=== PATIENT | female | born 1980 | race Caucasian/White ===

== ENCOUNTER 2019-08-09 10:34 | Day surgery (SDC) | payer OTHER, SELFPAY ==
[2019-08-08 14:24] VITALS: BMI 34.9
[2019-08-09 11:09] LABS: OR HCG Qualitative Urine Negative (Negative)
[2019-08-09 11:10] VITALS: BP 136/92; PULSE 95; RESP 18; TEMP 36.9; O2SAT 99
--- NOTE | 2019-08-09 11:54 | ANES.PREANES ---
Pre-Anesthetic Assessment Pre-Anesthetic Assessment: Height/Weight: Height 1.65 m Weight 95.254 kg Temp Pulse Resp BP Pulse Ox 98.4 F 95 18 136/92 99 08/09/19 11:10 08/09/19 11:10 08/09/19 11:10 08/09/19 11:10 08/09/19 11:10 Preop Diagnosis: Right carpal tunnel syndrome Proposed Procedure: Operation Date: 08/09/19 12:20 Proposed Procedures p Carpal Tunnel Release 28968 G56.01(Right) - Felix Deleon MD Social: Social History: No alcohol and No tobacco Exam: Pre-Anes Outpt Exam: alert, oriented x 3, clear to auscultation bilaterally and regular rate & rhythm Airway: Submandibular: WNL Cervical ROM: WNL MP: 2 History/ROS: No significant history except as noted Pulmonary: Pulmonary: None reported CV/HEM: CV/HEM: None reported : : None reported Hepatic: Hepatic: None reported GI: GI: None reported Metabolic: Metabolic: None reported Musc/skel: Musc/skel: None reported Neuropsych: Neuropsych: None reported Anesthetic Plan: ASA status: I Anesthesia: Anesthesia Evaluation and MAC Risk of > 500 ml blood loss (7ml/kg in children): No PFSH Anesthesia PFSH: Medical History (Updated 08/09/19 @ 11:54 by Sergio Wright MD) Carpal tunnel syndrome of right wrist (Acute) Genital herpes (Acute) History of seizure disorder (Acute) Surgical History (Updated 08/09/19 @ 11:54 by Sergio Wright MD) Hx of removal of ovary (Acute) left Social History Smoking and tobacco status: never smoked Second hand smoke exposure: No Smoking risk assessment/counseling performed?: No Alcohol intake: never Counseling given: No Lives independently: Yes Household members: children Marital status: Data Anesthesia Other Labs: Laboratory Results - last 48 hr 08/09/19 10:56 Urine HCG, Qual Negative Cardiac Studies: No Data to Display
[2019-08-09] MEDS: sodium chloride 0.9% 1,000 ML 30 ML IV (12:10)
--- NOTE | 2019-08-09 13:49 | PM.HPUD ---
H&P update H&P Update: DATE OF SURGERY/PROCEDURE: 08/09/19 DATE H&P PERFORMED: 08/01/19 H&P UPDATE INFORMATION: H&P completed within last 30 days and No changes to prior documentation PREOP DIAGNOSIS: Right carpal tunnel syndrome PRIMARY INDICATION FOR PROCEDURE: The patient describes continued pain and numbness in her right hand with nerve conduction studies suggesting carpal tunnel syndrome. PLANNED PROCEDURE: Operation Date: 08/09/19 12:20 Proposed Procedures p Carpal Tunnel Release 12977 G56.01(Right) - Felix Deleon MD Full H&P Medications/Allergies: Current Medications: Current Medications Generic Name Dose Route Start Last Admin Trade Name Freq PRN Reason Stop Dose Admin Sodium Chloride 1,000 mls @ 30 ml s/hr 08/09/19 10:45 08/09/19 12:10 Sodium Chloride 0.9% IV 08/10/19 10:44 30 mls/hr .Q24H LM Administration Perinent History: Medical/Surgical History: Medical History (Updated 08/09/19 @ 11:54 by Sergio Wrihgt MD) Carpal tunnel syndrome of right wrist (Acute) Genital herpes (Acute) History of seizure disorder (Acute) Social History: Social History Smoking and tobacco status: never smoked Second hand smoke exposure: No Smoking risk assessment/counseling performed?: No Alcohol intake: never Counseling given: No Lives independently: Yes Household members: children Marital status:
--- NOTE | 2019-08-09 14:42 | P.OP_ITS ---
Operative Report Date of procedure: 08/09/19 Pre-op Diagnosis: Right carpal tunnel syndrome Post-op diagnosis: same Pathology: none sent Anesthesia: Local (Zia block) Tourniquet time (min): 21 Complications: None Findings: No masses or space-occupying lesions are seen within the carpal tunnel Condition: stable Disposition: same day Procedure: Patient was taken to the operating room and anesthesia provided by the anesthesia service. She was prepped and draped with the arm exposed. A timeout was performed. A 3 cm long incision was made in line with the fourth ray from the distal edge of the carpal tunnel extending proximally. The subcutaneo us fat and palmar fascia was divided with a scalpel blade. Under loupe magnification the ulnar neurovascular bundle was identified distally. A hemostat could be passed under the transverse carpal ligament allowing the distal 25% to be divided. A slotted guide was then passed beneath the transverse carpal ligament and the middle 50% divided. Blunt scissors were then passed over the guide freeing the proximal ligament. The tourniquet was deflated. Hemostasis provided with electrocautery. Wound edges were infiltrated with 10 cc of a half percent Marcaine solution. Skin edges were reapproximated with 3-0 Prolene. Sterile dressings were applied. The patient was taken to the recovery room in stable condition
[2019-08-09 14:54] VITALS: BP 108/68; PULSE 78; RESP 16; TEMP 36.4; O2SAT 100
[2019-08-09 15:20] VITALS: BP 116/81; PULSE 64; RESP 18; TEMP 36.4; O2SAT 98
== END 2019-08-09 15:52 | disposition home or self-care (01) ==
PROVIDERS: Anesthesiology; Family Provider Nurse Practitioner; PCP Nurse Practitioner Family; Visit Provider Orthopaedic Surgery
PROC: (CPT 64721; principal; 2019-08-09 12:10)
DX: G56.01 Carpal tunnel syndrome, right upper limb (principal)
CPT/HCPCS: 64721; 12345; 81025; 84703; 96365; J0690; J2001; J2250; J2704; J3490; J7030

== ENCOUNTER → 2020-02-12 13:04 | Outpatient (BNVA) | payer SELFPAY | PROVIDERS: Family Provider Nurse Practitioner; PCP Nurse Practitioner Family; Visit Provider Nurse Practitioner Family | DX: M25.572 Pain in left ankle and joints of left foot (principal); S99.912A Unspecified injury of left ankle, initial encounter; W19.XXXA Unspecified fall, initial encounter | CPT/HCPCS: 73610 ==

== ENCOUNTER → 2021-08-11 13:43 | Outpatient (BNVA) | payer SELFPAY | PROVIDERS: Family Provider Nurse Practitioner; PCP Nurse Practitioner Family; Visit Provider Nurse Practitioner Family | DX: Z12.4 Encounter for screening for malignant neoplasm of cervix (principal); B37.2 Candidiasis of skin and nail | CPT/HCPCS: 87624 ==

== ENCOUNTER → 2021-08-29 08:41 | Outpatient (BNVA) | payer OTHER, SELFPAY | PROVIDERS: Family Provider Nurse Practitioner; PCP Nurse Practitioner Family; Visit Provider Nurse Practitioner Family | DX: M25.50 Pain in unspecified joint (principal); R53.83 Other fatigue; Z13.6 Encounter for screening for cardiovascular disorders; Z12.4 Encounter for screening for malignant neoplasm of cervix | CPT/HCPCS: 80053; 80061; 84443; 85025; 85651; 86140; 86200; 86431 ==

== ENCOUNTER 2021-09-19 09:01 | Outpatient (CLI) | payer OTHER, SELFPAY ==
--- NOTE | 2021-09-19 09:28 | XR_ITS ---
WS: [email or web address] Sacroiliac joints, 3 views, 09/19/2021 Clinical Data: L40.9 - Psoriasis, unspecified Comparison: None. Findings: The SI joints are normal in width. No erosion, sclerosis or destruction is seen. There are no fractur es or dislocations. The adjacent visualized pelvis and hips are unremarkable. XR/XR sacroiliac jts m 3V [id number] Impression: Negative SI joints.
--- NOTE | 2021-09-19 09:28 | XR_ITS ---
WS: [email or web address] Right hand, 2 views, 09/19/2021 Clinical Data: M54.50 - Low back pain, unspecified Comparison: None. Findings: No fractures or dislocations are seen. The soft tissues are unremarkable. The joint space s are normal No periarticular demineralization or calcifications are seen. XR/XR hand RT 2V [id number] Impression: Negative right hand.
--- NOTE | 2021-09-19 09:28 | XR_ITS ---
WS: [email or web address] Left hand, 2 views, 09/19/2021 Clinical Data: M54.50 - Low back pain, unspecified Comparison: None. Findings: No fractures or dislocations are seen. The soft tissues are unremarkable. The joint spaces are normal No periarticular demineralization or calcifications are seen. XR/XR hand LT 2V [id number] Impression: Negative left hand.
--- NOTE | 2021-09-19 09:28 | XR_ITS ---
WS: [email or web address] Left foot, 2 views, 09/19/2021 Clinical Data: M25.50 - Pain in unspecified joint Comparison: None. Findings: No fractures or dislocations are seen. No bone destruction or erosion is noted. The joint spaces and soft tissues are normal. No periarticular demineralization or calcifications are seen. There is a plantar spur. XR/XR foot LT 2V [id number] Impression: Negative left foot.
--- NOTE | 2021-09-19 09:28 | XR_ITS ---
WS: [email or web address] Lumbar spine, 3 views, 09/19/2021 Clinical Data: M54.50 - Low back pain, unspecified Comparison: Lumbar spine, 04/12/2013. Findings: No compression fractures or subluxation is seen. No disc space narrowing is seen. The transverse proc esses and SI joints are normal. There is minimal osteoarthritic change of the anterior aspect of the L3 and L4 vertebral bodies. XR/XR lumbar spine 2-3V* [id number] Impression: Mild osteoarthritis of L3 and L4.
--- NOTE | 2021-09-19 09:28 | XR_ITS ---
WS: [email or web address] Right foot, 2 views, right foot. Clinical Data: M25.50 - Pain in unspecified joint Comparison: None. Findings: No fractures or dislocations are seen. No bone destruction or erosion is noted. The joint spaces and soft tissues are normal. No periarticular demineralization or calcifications are seen. XR/XR foot RT 2V [id number] Impression: Negative right foot.
[2021-09-19 10:33] LABS: Creatine Phosphokinase 69 U/L (26-192); Thyroid Stimulating Hormone 2.13 uIU/mL (0.27-4.20)
[2021-09-19 10:42] LABS: Hepatitis B Core AB, Total Non-Reactive (Nonreactive); Hepatitis B Surface Antigen Non-Reactive (Nonreactive); Hepatitis C Virus Antibody Non-Reactive (Nonreactive)
[2021-09-22 11:49] LABS: COMPLEMENT COMPONENT C3C 163 mg/dL (83-193); COMPLEMENT COMPONENT C4C 23 mg/dL (15-57)
[2021-09-22 17:22] LABS: COMPLEMENT, TOTAL (CH50) 58 U/mL (31-60)
[2021-09-24 14:52] LABS: THYROID PEROXIDASE ANTIBODIES 1 IU/mL (<9)
[2021-09-24 16:27] LABS: ANA SCREEN, IFA NEGATIVE (NEGATIVE); CENTROMERE B ANTIBODY <1.0 NEG AI (<1.0 NEG); JO-1 ANTIBODY <1.0 NEG AI (<1.0 NEG); RNP ANTIBODY <1.0 NEG AI (<1.0 NEG); SCL-70 ANTIBODY <1.0 NEG AI (<1.0 NEG); SJOGREN'S ANTIBODY (SS-A) <1.0 NEG AI (<1.0 NEG); SM ANTIBODY <1.0 NEG AI (<1.0 NEG); SS-B <1.0 NEG AI (<1.0 NEG)
[2021-09-25 12:22] LABS: DNA AB (DS) CRITHIDIA,IFA NEGATIVE (NEGATIVE)
== END 2021-09-19 09:02 | disposition home or self-care (01) ==
LOC: RAD 09:11
PROVIDERS: PCP Nurse Practitioner Family; Visit Provider Internal Medicine
DX: M54.50 Low back pain, unspecified (principal); E78.5 Hyperlipidemia, unspecified; G56.01 Carpal tunnel syndrome, right upper limb; M25.50 Pain in unspecified joint; R41.3 Other amnesia; L40.9 Psoriasis, unspecified; M47.816 Spondylosis without myelopathy or radiculopathy, lumbar region
CPT/HCPCS: 36415; 72100; 72202; 73120; 73620; 82550; 83516; 84443; 86160; 86162; 86235; 86255; 86376; 86704; 86803; 87340

== ENCOUNTER 2021-12-10 09:13 | Outpatient (RCR) | payer OTHER, SELFPAY | END 2021-12-16 23:59 | disposition home or self-care (01) | LOC: SPT 09:13 | PROVIDERS: PCP Nurse Practitioner Family; Referring Provider Nurse Practitioner; Visit Provider Nurse Practitioner | DX: S93.412D Sprain of calcaneofibular ligament of left ankle, subsequent encounter (principal); X58.XXXD Exposure to other specified factors, subsequent encounter | CPT/HCPCS: 97110; 97162 ==

== ENCOUNTER 2021-12-17 06:00 | Outpatient (RCR) | payer OTHER, SELFPAY | END 2021-12-31 23:59 | disposition home or self-care (01) | LOC: SPT 06:00 | PROVIDERS: PCP Nurse Practitioner Family; Referring Provider Nurse Practitioner; Visit Provider Nurse Practitioner | DX: S93.412D Sprain of calcaneofibular ligament of left ankle, subsequent encounter (principal); X58.XXXD Exposure to other specified factors, subsequent encounter | CPT/HCPCS: 97110 ==

== ENCOUNTER → 2021-12-19 10:59 | Outpatient (BNVA) | payer OTHER, SELFPAY | PROVIDERS: PCP Nurse Practitioner Family; Visit Provider Nurse Practitioner Family | DX: H53.9 Unspecified visual disturbance (principal); E78.5 Hyperlipidemia, unspecified; E88.81 Metabolic syndrome and other insulin resistance | CPT/HCPCS: 80061 ==

== ENCOUNTER → 2022-03-30 13:47 | Outpatient (BNVA) | payer OTHER, SELFPAY | PROVIDERS: PCP Nurse Practitioner Family; Visit Provider Nurse Practitioner Family | DX: R39.9 Unspecified symptoms and signs involving the genitourinary system (principal); B37.3 Candidiasis of vulva and vagina; K21.9 Gastro-esophageal reflux disease without esophagitis; E78.5 Hyperlipidemia, unspecified | CPT/HCPCS: 81000 ==

== ENCOUNTER → 2022-06-19 13:19 | Outpatient (BNVA) | payer OTHER, SELFPAY | PROVIDERS: PCP Nurse Practitioner Family; Visit Provider Nurse Practitioner Family | DX: R05.9 Cough, unspecified (principal) | CPT/HCPCS: 87400 ==

== ENCOUNTER → 2022-10-06 09:36 | Outpatient (BNVA) | payer OTHER, SELFPAY | PROVIDERS: PCP Nurse Practitioner Family; Visit Provider Nurse Practitioner Family | DX: R05.3 Chronic cough (principal) | CPT/HCPCS: 71046 ==

== ENCOUNTER 2023-08-13 18:24 | Emergency (ER) | payer OTHER, SELFPAY ==
[2023-08-13 18:27] VITALS: BP 141/92; PULSE 89; RESP 16; TEMP 36.4; O2SAT 99
[2023-08-13 20:37] VITALS: BP 123/90; PULSE 77; O2SAT 100
[2023-08-13] MEDS: dexamethasone 4 mg Tablet 10 MG PO (20:58)
[2023-08-13 20:59] VITALS: BP 123/90; PULSE 90; O2SAT 99
[2023-08-13] MEDS: diphenhydrAMINE 25 mg Capsule PO (20:59)
--- NOTE | 2023-08-13 22:03 | W.ED.ALLEREA ---
HPI - Allergic Reaction General: Chief complaint: Allergic Reaction Stated complaint: Allergic Reaction Time Seen by Provider: 08/13/23 20:16 History of Present Illness: HPI narrative: 43-year-old female presents with swelling around her bilateral eyes. There is itchiness 2. This started around 3 PM or 330 today. No definite known cause. When her symptoms worsen, particularly the swelling, she took Benadryl. She seemed to begin to improve some following this. She still has significant left lower lid and some right upper lid swelling. The itchiness has improved. There is no redness or drainage she says. No airway symptoms. No trouble breathing. No vomiting or diarrhea. No rash. Of note, she has had similar symptoms on and off for the last 6 months, and has not been able to determine a cause. Tonight was the worst Associated symptoms: Deny abdominal pain, hoarseness, nausea or vomiting Review of Systems Const: Denies: fever(s) Eyes: Reports: blurry vision (With lid swelling) and eye discomfort; Denies: photophobia, eye discharge or eye redness ENMT: Reports: sinus pain; Denies: throat pain, odynophagia, hoarseness, nasal congestion or nasal obstruction Card: Denies: chest pain Resp: Denies: dyspnea, productive cough or non-productive cough GI: Denies: abdominal pain, nausea, vomiting or diarrhea [facility] ED PFSH: Medical History CRP elevated Ankle pain Hyperlipemia Genital herpes Carpal tunnel syndrome of right wrist History of seizure disorder Surgical History Hx of removal of ovary left Family History Other Cancer Diabetes Heart attack Hyperlipidemia Hypertension Stroke Denies family history of Rheumatoid arthritis Lupus CAD (coronary artery disease) Clotting disorder Dementia Psychiatric illness Chronic kidney disease (CKD) Suicide Anesthesia complication Bleeding disorder Family history of premature coronary artery disease Lung disease Social History Smoking and tobacco/nicotine status: never used tobacco/nicotine Second hand smoke exposure: No Alcohol intake: never Substance/Drug Use: never Lives independently: Yes Household members: children Marital status: Physical Exam Const: COMMON NORMALS: no acute distress GENERAL APPEARANCE: cooperative; not ill appearing and not frail appearing HENMT: COMMON NORMALS: normocephalic, atraumatic and Normal external nose present HEAD & SCALP: normocephalic and atraumatic NOSE: Normal external nose present MOUTH: Normal oral and palatal mucosa present, lip normal and tongue normal Eye: COMMON NORMALS: Equal, round and reactive pupils present and EOMs intact bilaterally EYELID: eyelid abnormality right upper eyelid swelling and left lower eyelid erythema and swelling PUPIL: Yes Equal, round and reactive pupils present OTHER: Bilateral periorbital swelling, left worse than right Neck/C-Spine: GENERAL: Yes trachea midline Chest: CHEST: Yes Symmetrical chest wall rise Resp: COMMON NORMALS: normal respiratory effort, No retractions, No use of accessory muscles and clear to auscultation bilaterally AUSCULTATION: clear to auscultation bilaterally Cardio: COMMON NORMALS: regular rate and regular rhythm RATE: regular rate RHYTHM: regular rhythm Extremity: COMMON NORMALS: no pedal edema Neuro: [place] COMA SCALE: document GCS findings [place] coma scale eye opening: Spontaneous [place] coma scale verbal response: Orientated [place] coma scale motor response: Obey commands [place] coma scale total score: 15 SENSORY EXAM: Yes extremities (intact) Psych: COMMON NORMALS: speech normal SPEECH: Yes normal speech Skin: COMMON NORMALS: no rashes or lesions noted GENERAL SKIN EXAM: no rashes or lesions noted Course Vital Signs: Vital signs: Vital Signs Temperature 97.6 F 08/13/23 18:27 Pulse Rate 90 08/13/23 20:59 Respiratory Rate 16 08/13/23 18:27 Blood Pressure 123/90 08/13/23 20:59 Pulse Oximetry 99 08/13/23 20:59 Oxygen Delivery Me thod Room Air 08/13/23 20:37 MDM - Allergic Reaction Medical Decision Making Patient is significantly improved on her own. Will place her on steroids for the next few days. Tapering dose. Antihistamines. She may require optometry or ophthalmology consult as an outpatient given her ongoing symptoms. No radiology studies performed this visit Discharge Plan Discharge Patient Disposition: Home Clinical Impression: Allergic reaction Condition: Stable Prescriptions: New Medrol (Jordan) 4 mg tablets,dose pack See Rx Instructions .ROUTE .COMPLEX Qty: 21 0RF Rx Instructions: orally per package directions No Action ketoconazole 2 % shampoo 1 applic topical ONCE Qty: 120 3RF Rx Instructions: Lather onto affected areas as body wash everyday for 4 weeks then one week per month thereafter. ketoconazole 2 % cream 1 applic topical BID Qty: 30 6RF Rx Instructions: Apply to red scaly areas of the face 2 times daily. triamcinolone acetonide 0.1 % ointment 1 applic topical BID Qty: 80 0RF Rx Instructions: Apply to affected area no more than 2 weeks/month. Not for use on face. clobetasol 0.05 % solution 1 applic topical DAILY Qty: 50 3RF Rx Instructions: Apply few drops to itchy areas of scalp as needed. fluocinolone 0.01 % solution 1 applic topical BID Qty: 60 1RF Rx Instructions: Use twice daily on the scalp oseltamivir [Tamiflu] 75 mg capsule 75 mg PO BID 5 Days Qty: 10 0RF pravastatin 10 mg tablet 10 mg PO DAILY Qty: 30 5RF pantoprazole 40 mg tablet,delayed release (DR/EC) 40 mg PO DAILY Qty: 30 5RF amoxicillin 875 mg tablet 875 mg PO BID Qty: 20 0RF (DME) compressor, for nebulizer Device See Rx Instructions .Route Qty: 1 0RF Rx Instructions: As directed albuterol sulfate 2.5 mg /3 mL (0.083 %) solution for nebulization 2.5 mg inhalation Q4H PRN (Reason: shortness of breath or wheezing) Qty: 75 0RF budesonide 0.25 mg/2 mL suspension for nebulization 0.25 mg inhalation BID Qty: 28 0RF Discharge Orders: Discharge ED (Routine); Ordered 08/13/23 Ordered By: Philipp Jj Referrals: Tessa Ann FNP-C [Primary Care Provider] - 4-7 days Patient Instructions: Allergic Reaction Activity Restrictions/Additional Instructions: Take medication as directed. Also, take Zyrtec or Claritin up to twice daily for the next 4 to 5 days. Return for worsening swelling, itching, etc. despite treatment. Return also for trouble breathing, tightness in the throat, etc. See your doctor next week. You may require referral to an director maternal child or manufacturing executive regarding the swelling around your eyes. Coding Level of Care Code ED Hog [employer]ber for Magali James
== END 2023-08-13 21:00 | disposition home or self-care (01) ==
PROVIDERS: Emergency Provider Emergency Medicine; PCP Nurse Practitioner Family
DX: T78.40XA Allergy, unspecified, initial encounter (principal); E78.5 Hyperlipidemia, unspecified; X58.XXXA Exposure to other specified factors, initial encounter
CPT/HCPCS: 99283; J8540

== ENCOUNTER 2023-10-13 12:06 | Outpatient (CLI) | payer SELFPAY ==
[2023-10-13 13:00] LABS: Basophils # 0.1 10^3/uL (0.0-0.1); Basophils % 0.5 %; Eosinophils % 0.3 %; Hematocrit 43.3 % (36-47); Lymphocytes # 1.1 10^3/uL (0.8-4.8); Lymphocytes % 11.5 %; Mean Corpuscular HGB Conc 32.1 g/dL (30-55); Mean Corpuscular Hemoglobin 27.6 pg (27-33); Mean Corpuscular Volume 86.1 fl (85-98); Mean Platelet Volume 10.7 fL (7.4-10.4); Monocytes # 0.3 10^3/uL (0.2-0.9); Monocytes % 2.5 %; Neutrophils # 8.43 10^3/uL (1.8-7.7); Neutrophils % 84.8 %; Nucleated Red Blood Cells % 0 %; Platelet Count 343 10^3/cmm (157-399); Red Blood Count 5.03 10^6/uL (3.85-5.65); Red Cell Distribution Width 12.9 % (12.1-15.1); White Blood Count 9.94 10^3/uL (3.29-11.43)
[2023-10-13 13:31] LABS: Alanine Aminotransferase 13 U/L (0-33); Albumin Level 4.3 g/dL (3.5-5.2); Alkaline Phosphatase 67 U/L (35-105); Anion Gap 13.1 (5-19); Aspartate Amino Transferase 12 U/L (0-32); Blood Urea Nitrogen 11 mg/dL (6-20); Calcium 9.5 mg/dL (8.5-10.5); Carbon Dioxide 27 mmol/L (22-29); Chloride 102 mmol/L (98-107); Chol HDL Ratio 5.02 mg/dL (0.0-4.40); Cholesterol 251 mg/dL (0-200); Globulin 3.3 g/dL (1.3-4.6); Glomerular Filtration Rate 110.2 mL/min (90-130); Glucose 101 mg/dL (65-115); HDL Cholesterol 50 mg/dL (60-100); LDL Cholesterol Calculated 174 mg/dL (50-129); LDL HDL Ratio 3.48 RATIO (0.00-3.22); Osmolality Calculated 286 mOsm/kg (285-295); Potassium 4.1 mmol/L (3.5-5.1); Sodium 138 mmol/L (136-145); Thyroid Stimulating Hormone 1.85 uIU/mL (0.27-4.20); Total Bilirubin 0.3 mg/dL (0.15-1.2); Total Protein 7.6 g/dL (6.6-8.7); Triglycerides 134 mg/dL (0-150)
== END 2023-10-13 12:07 | disposition home or self-care (01) ==
LOC: LAB 12:08
PROVIDERS: PCP Nurse Practitioner Family; Visit Provider Nurse Practitioner Family
DX: E78.5 Hyperlipidemia, unspecified (principal); T78.40XA Allergy, unspecified, initial encounter
CPT/HCPCS: 36415; 80053; 80061; 81000; 84443; 85025

== ENCOUNTER → 2024-03-06 10:37 | Outpatient (BNVA) | payer SELFPAY | PROVIDERS: PCP Nurse Practitioner Family; Visit Provider Nurse Practitioner Family | DX: E78.2 Mixed hyperlipidemia (principal); R05.9 Cough, unspecified | CPT/HCPCS: 87400; 87426 ==

== ENCOUNTER → 2024-10-25 09:15 | Outpatient (BNVA) | payer OTHER, SELFPAY | PROVIDERS: PCP Nurse Practitioner Family; Visit Provider Nurse Practitioner Family | DX: E78.2 Mixed hyperlipidemia (principal) | CPT/HCPCS: 80053; 80061; 84443 ==

== ENCOUNTER 2024-10-27 07:08 | Outpatient (CLI) | payer OTHER, SELFPAY ==
[2024-10-27 07:33] LABS: Basophils # 0.1 10^3/uL (0.0-0.1); Basophils % 1.1 %; Eosinophils # 0.3 10^3/uL (0.0-0.8); Eosinophils % 3.5 %; Hematocrit 44.8 % (36-47); Lymphocytes # 2.2 10^3/uL (0.8-4.8); Lymphocytes % 27.9 %; Mean Corpuscular HGB Conc 32.6 g/dL (30-55); Mean Corpuscular Hemoglobin 27.8 pg (27-33); Mean Corpuscular Volume 85.2 fl (85-98); Mean Platelet Volume 10.9 fL (7.4-10.4); Monocytes # 0.6 10^3/uL (0.2-0.9); Monocytes % 7.9 %; Neutrophils # 4.74 10^3/uL (1.8-7.7); Neutrophils % 59.2 %; Nucleated Red Blood Cells % 0 %; Platelet Count 284 10^3/cmm (157-399); Red Blood Count 5.26 10^6/uL (3.85-5.65); Red Cell Distribution Width 12.9 % (12.1-15.1)
== END 2024-10-27 07:09 | disposition home or self-care (01) ==
PROVIDERS: PCP Nurse Practitioner Family; Visit Provider Nurse Practitioner Family
DX: E78.2 Mixed hyperlipidemia (principal)
CPT/HCPCS: 36415; 85025

== ENCOUNTER → 2025-02-01 09:27 | Outpatient (BNVA) | payer OTHER, SELFPAY | PROVIDERS: PCP Nurse Practitioner Family; Visit Provider Nurse Practitioner Family | DX: G89.29 Other chronic pain (principal); M17.12 Unilateral primary osteoarthritis, left knee; M79.672 Pain in left foot; M77.32 Calcaneal spur, left foot | CPT/HCPCS: 73562; 73630 ==

== ENCOUNTER → 2025-03-15 16:12 | Outpatient (BNVA) | payer OTHER, SELFPAY | PROVIDERS: PCP Nurse Practitioner Family; Visit Provider Nurse Practitioner Family | DX: E78.2 Mixed hyperlipidemia (principal); K21.9 Gastro-esophageal reflux disease without esophagitis | CPT/HCPCS: 80053; 80061; 84443; 85025 ==

== ENCOUNTER → 2025-04-09 11:38 | Outpatient (BNVA) | payer OTHER, SELFPAY | PROVIDERS: PCP Nurse Practitioner Family; Visit Provider Nurse Practitioner | DX: R39.9 Unspecified symptoms and signs involving the genitourinary system (principal) | CPT/HCPCS: 81000; 87086 ==

== ENCOUNTER 2025-04-11 19:43 | Emergency (ER) | payer OTHER, SELFPAY ==
[2025-04-11] VITALS (8 sets, daily range): BP systolic 111–164; BP diastolic 72–109; PULSE 80–108; RESP 18; TEMP 37.4; O2SAT 91–98; BMI 39.9
--- NOTE | 2025-04-11 19:46 | ECG_ITS ---
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 Measurements Intervals [place] Rate: 102 P: 56 [place]: 151 QRS: 54 QRSD: 78 T: 56 QT: 312 QTc: 408 Interpretive Statements SINUS TACHYCARDIA LOW QRS VOLTAGE IN PRECORDIAL LEADS [QRS DEFLECTION < 1.0 mV IN CHEST LEADS] ABNORMAL RHYTHM ECG No previous ECG available for comparison Electronically Signed On 04-11-2025 21:30:19 CDT by Morgan Hampton M.D. [email or web address]
--- NOTE | 2025-04-11 19:49 | XRR_ITS ---
PROCEDURE INFORMATION: Exam: XR Chest Exam date and time: 04/11/2025 7:59 PM Age: 44 years old Clinical indication: Chest wall pain; Additional info: Cp TECHNIQUE: Imaging protocol: Radiologic exam of the chest. Views: 1 view. COMPARISON: CR XR chest 2V* [id number] 10/06/2022 9:35 AM FINDINGS: Lungs: Unremarkable. No consolidation. Pleural spaces: Unremarkable. No pleural effusion. No pneumothorax. Heart/Mediastinum: Unremarkable. No cardiomegaly. Bones/joints: Unremarkable. XR/XR chest 1V portable [id number] IMPRESSION: No acute findings.
--- NOTE | 2025-04-11 19:54 | ED_ITS ---
HPI - Chest Pain 2 General: Chief Complaint: Chest Pain Stated Complaint: CP headache Time Seen by Provider: 04/11/25 19:44 Source: patient Mode of arrival: ambulatory Limitations: no limitations History of Present Illness: 44-year-old female states that she recen tly diagnosed UTI states she started antibiotics on Wednesday she states that today she has been having some generalized fatigue with mild headache and bodyaches. States started having some sharp chest pains roughly an hour ago to with some mild dyspnea with exertion. States her pain is currently a 1 out of 10 denies any history of heart issues denies any vomiting or diarrhea. Associated symptoms: Reports dyspnea; Deny abdominal pain, fever(s), nausea or vomiting Related Data Previous Rx's ?Medication ?Instructions ?Recorded ketoconazole 2 % shampoo 1 applic topical ONCE #120 m L 09/02/22 ketoconazole 2 % topical cream 1 applic topical BID #3 0 grams 09/02/22 triamcinolone acetonide 0.1 % 1 applic topical BID #80 grams 09/02/22 topical ointment fluocinolone 0.01 % topical 1 applic topical BID #60 m L 09/03/22 solution albuterol sulfate 2.5 mg/3 mL 2.5 mg (3 mL) inhalation Q4H PRN 10/06/22 (0.083 %) solution for nebulization shortness of breat h or wheezing #75 mL compressor, for nebulizer #1 ea 10/06/22 albuterol sulfate 90 mcg/actuation 2 inh inhalation QI D PRN shortness 03/06/24 breath activated powder inhaler of breath or wheezing #1 ea gabapentin 300 mg capsule 300 mg PO BID #60 caps 03/15 mupirocin 2 % topical ointment 1 applic topical BID #1 5 grams 03/15/25 (Centany) pantoprazole 40 mg tablet,delayed 40 mg PO DAILY #30 t abs 03/15/25 release pravastatin 10 mg tablet 10 mg PO DAILY #30 tabs 02/17 03/12 meloxicam 15 mg tablet 15 mg PO DAILY 30 days #30 t abs 03/20/25 nitrofurantoin 100 mg PO BID 7 days #14 cap s 04/09/25 monohydrate/macrocrystals 100 mg capsule (Macrobid) Allergies Allergy/AdvReac Type Severity Reaction Status Date / Time phenytoin (From Dilantin) Allergy rash Verified 04/11/25 19:54 Review of Systems 2 Const: Reports: chills and body aches; Denies: fever(s) or change in appetite ENMT: Denies: throat pain or dental pain Card: Reports: chest pain Resp: Reports: dyspnea GI: Denies: abdominal pain, nausea, vomiting or diarrhea Musc: Denies: neck pain or back pain Skin/Breast: Denies: rash Neuro: Denies: headache(s) PFSH ED 2 PFSH: Medical History CRP elevated Ankle pain Hyperlipemia Genital herpes Carpal tunnel syndrome of right wrist History of seizure disorder Surgical History Hx of removal of ovary left Family History Other Cancer Diabetes Heart attack Hyperlipidemia Hypertension Stroke Denies family history of Rheumatoid arthritis Lupus CAD (coronary artery disease) Clotting disorder Dementia Psychiatric illness Chronic kidney disease (CKD) Suicide Anesthesia complication Bleeding disorder Family history of premature coronary artery disease Lung disease Social History Smoking and tobacco/nicotine status: never used tobacco/nicotine Second hand smoke exposure: No Alcohol intake: never Substance/Drug Use: never Lives independently: Yes Household members: children Marital status: Physical Exam 2 Const: COMMON NORMALS: no acute distress, patient oriented x3 and healthy appearing HENMT: COMMON NORMALS: normocephalic and atraumatic HEAD & SCALP: n ormocephalic and atraumatic Eye: COMMON NORMALS: conjunctivae normal CONJUNCTIVA: Yes conjunctivae normal Neck/C-Spine: COMMON NORMALS: full ROM and supple Chest: COMMONS NORMALS: normal inspection of the chest Resp: COMMON NORMALS: normal respiratory effort, No retractions, No use of accessory muscles and clear to auscultation bilaterally AUSCULTATION: clear to auscultation bilaterally Cardio: COMMON NORMALS: regular rhythm and No murmurs present (Cardio) R ATE: tachycardic RHYTHM: regular rhythm Extremity: COMMON NORMALS: normal to inspection and full ROM Neuro: COMMON NORMALS: patient oriented x3, moves all extremities and no focal motor deficits Psych: COMMON NORMALS: mental status grossly normal, Normal thought process present and cooperative THOUGHT PROCESS: Normal thought process present Skin: COMMON NORMALS: no rashes or lesions noted and no wounds GENERAL SKIN EXAM: no rashes or lesions noted Course 2 Vital Signs: Vital signs: Vital Signs Temperature 99.3 F 04/11/25 19:51 Pulse Rate 92 04/11/25 22:00 Respiratory Rate 18 04/11/25 20:30 Blood Pressure 129/84 04/11/25 22:00 Pulse Oximetry 95 04/11/25 22:00 Oxygen Delivery Me thod Room Air 04/11/25 19:51 MDM - Chest Pain Medical Decision Making Patient presents for chest pain is atypical in nature she has no signs of ACS CTA showed no signs of pneumonia or PE. Blood work here is otherwise normal initial repeat troponins are negative. She feels improved. She is continue her antibiotic for UTI that go over these findings with her she is stable for discharge she is follow-up her PCP and return if worsening. Differential Diagnosis Likely acute massive pulmonary embolism and acute myocardial infarction Medical Records I reviewed the patient's medical records. Lab Data I reviewed the patient's lab results. 04/11/25 19:52 04/11/25 19:52 Radiology Impressions Chest X-Ray 04/11/25 19:49 IMPRESSION: No acute findings. Chest CTA 04/11/25 20:16 IMPRESSION: 1. Findings most suspicious for developing interstitial edema with small septal wall thickening in the upper and lower lung parenchyma without significant pleural effusion 2. Compressive atelectasis lower lobes 3. No acute or chronic pulmonary embolism. Laboratory Results WBC 6.23 10^3/uL (3.29-11.43) 04/11/25 19:52 RBC 4.80 10^6/uL (3.85-5.65) 04/11/25 19:52 Hgb 13.00 g/dL (11.27-16.99) 04/11/25 19:52 Hct 41.0 % (36-47) 04/11/25 19:52 MCV 85.4 fl (85-98) 04/11/25 19:52 MCH 27.1 pg (27-33) 04/11/25 19:52 MCHC 31.7 g/dL (30-55) 04/11/25 19:52 RDW 13.5 % (12.1-15.1) 04/11/25 19:52 Plt Count 276 10^3/cmm (157-399) 04/11/25 19:52 MPV 10.5 fL (7.4-10.4) H 04/11/25 19:52 Neut % (Auto) 58.3 % 04/11/25 19:52 Lymph % (Auto) 18.3 % 04/11/25 19:52 Allen % (Auto) 9.6 % 04/11/25 19:52 Eos % (Auto) 12.5 % 04/11/25 19:52 Baso % (Auto) 1.0 % 04/11/25 19:52 Neut # (Auto) 3.63 10^3/uL (1.8-7.7) 04/11/25 19:52 Lymph # (Auto) 1.1 10^3/uL (0.8-4.8) 04/11/25 19:52 Allen # (Auto) 0.6 10^3/uL (0.2-0.9) 04/11/25 19:52 Eos # (Auto) 0.8 10^3/uL (0.0-0.8) 04/11/25 19:52 Baso # (Auto) 0.1 10^3/uL (0.0-0.1) 04/11/25 19:52 Nucleated RBC % (auto) 0 % 04/11/25 19:52 Nucleated RBCs # 0.0 /100WBC 04/11/25 19:52 D-Dimer 0.96 ug/mLFEU (0-0.59) H 04/11/25 19:52 Sodium 138 mmol/L (136-145) 04/11/25 19:52 Potassium 4.1 mmol/L (3.5-5.1) 04/11/25 19:52 Chloride 103 mmol/L (98-107) 04/11/25 19:52 Carbon Dioxide 26 mmol/L (22-29) 04/11/25 19:52 Anion Gap 13.1 (5-19) 04/11/25 19:52 BUN 7 mg/dL (6-20) 04/11/25 19:52 Creatinine 0.6 mg/dL (0.5-0.9) 04/11/25 19:52 GFR Calculation 109.6 mL/min (90-130) 04/11/25 19:52 Glucose 85 mg/dL (65-115) 04/11/25 19:52 Calculated Osmolality 283 mOsm/kg (285-295) L 04/11/25 19:52 Calcium 8.9 mg/dL (8.5-10.5) 04/11/25 19:52 Total Bilirubin 0.2 mg/dL (0.15-1.2) 04/11/25 19:52 AST 21 U/L (0-32) 04/11/25 19:52 ALT 15 U/L (0-33) 04/11/25 19:52 Alkaline Phosphatase 74 U/L (35-105) 04/11/25 19:52 Troponin T Baseline < 6 ng/L (0-10) 04/11/25 19:52 Troponin T 120 Minute < 6.0 ng/L (0-10) 04/11/25 22:07 Delta Troponin T 0 ABS# (0-10) 04/11/25 22:07 NT-Pro-B Natriuret Pep < 36 pg/mL (0-125) 04/11/25 22:07 Total Protein 7.1 g/dL (6.6-8.7) 04/11/25 19:52 Albumin 4.1 g/dL (3.5-5.2) 04/11/25 19:52 Globulin 3.0 g/dL (1.3-4.6) 04/11/25 19:52 Lipase 27 U/L (13-60) 04/11/25 19:52 Influenza A (PCR) Negative (Negative) 04/11/25 20:55 Influenza Type B (PCR) Negative (Negative) 04/11/25 20:55 RSV (PCR) Negative (Negative) 04/11/25 20:55 SARS-CoV-2 (PCR) Negative (Negative) 04/11/25 20:55 All radiology interpretation(s) finalized by discharge EKG Data EKG 1: I personally reviewed and interpreted this EKG as follows: EKG interpretation date: 04/11/25 EKG interpretation time: 19:46 Interpretation: sinus tach hr [address] or t wave abnormalities qrs 78 qtc 371 EKG 2: I personally reviewed and interpreted this EKG as follows: EKG interpretation date: 04/11/25 EKG interpretation time: 22:03 Interpretation: nsr hr [address] elevation qrs 80 qtc 381 Clincial Decision Support The following clinical decision support tools were used to aid in care of the patient HEART Score -> History: Slightly Suspicous, EKG: Normal, Age: Less than 45 yrs, Risk Factors: No Risk Factors Known, Troponin: Baseline Trop <16 ng/L. Resulting HEART Score: 0. Discharge Plan Discharge Patient Disposition: Home Clinical Impression: Chest pain Condition: Stable Prescriptions: No Action ketoconazole 2 % shampoo 1 applic topical ONCE Qty: 120 3RF Rx Instructions: Lather onto affected areas as body wash everyday for 4 weeks then one week per month thereafter. ketoconazole 2 % cream 1 applic topical BID Qty: 30 6RF Rx Instructions: Apply to red scaly areas of the face 2 times daily. triamcinolone acetonide 0.1 % ointment 1 applic topical BID Qty: 80 0RF Rx Instructions: Apply to affected area no more than 2 weeks/month. Not for use on face. fluocinolone 0.01 % solution 1 applic topical BID Qty: 60 1RF Rx Instructions: Use twice daily on the scalp pravastatin 10 mg tablet 10 mg PO DAILY Qty: 30 5RF pantoprazole 40 mg tablet,delayed release (DR/EC) 40 mg PO DAILY Qty: 30 5RF mupirocin [Centany] 2 % ointment 1 applic topical BID Qty: 15 2RF gabapentin 300 mg capsule 300 mg PO BID Qty: 60 5RF Rx Instructions: start once a day dosing, may increase after 4-5 meloxicam 15 mg tablet 15 mg PO DAILY 30 Days Qty: 30 0RF albuterol sulfate 90 mcg/actuation aerosol powdr breath activated 2 inh inhalation QID PRN (Reason: shortness of breath or wheezing) Qty: 1 0RF nitrofurantoin monohyd/m-cryst [Macrobid] 100 mg capsule 100 mg PO BID 7 Days Qty: 14 0RF Rx Instructions: must administer with a meal/food (DME) compressor, for nebulizer Device See Rx Instructions .Route Qty: 1 0RF Rx Instructions: As directed albuterol sulfate 2.5 mg /3 mL (0.083 %) solution for nebulization 2.5 mg inhalation Q4H PRN (Reason: shortness of breath or wheezing) Qty: 75 0RF Discharge Orders: Discharge ED (Routine); Ordered 04/11/25 Ordered By: Nataliya Ibarra Referrals: Tessa Ann FNP-C [Primary Care Provider, Family Practice] - 4-7 days Discharge Diet: Advance as tolerated Discharge Activity: Resume usual activity Patient Instructions: Chest Pain (ED) Print Language: [place] Coding Level of Care Code ED Corporate Safety Coordinator for Magali James
[2025-04-11 20:00] LABS: Hematocrit 41.0 % (36-47); Hemoglobin 13.00 g/dL (11.27-16.99); Mean Corpuscular HGB Conc 31.7 g/dL (30-55); Mean Corpuscular Hemoglobin 27.1 pg (27-33); Mean Corpuscular Volume 85.4 fl (85-98); Nucleated Red Blood Cells % 0 %; Platelet Count 276 10^3/cmm (157-399); Red Blood Count 4.80 10^6/uL (3.85-5.65); White Blood Count 6.23 10^3/uL (3.29-11.43)
--- NOTE | 2025-04-11 20:16 | CTR_ITS ---
PROCEDURE INFORMATION: Exam: CTA Chest With Contrast Exam date and time: 04/11/2025 8:27 PM Age: 44 years old Clinical indication: Shortness of breath; Additional info: SOB TECHNIQUE: Imaging protocol: Computed tomographic angiography of the chest with contrast. Exam focused on the arteries. 3D rendering (Not supervised by radiologist): MIP and/or 3D reconstructed images were created by the technologist. Radiation optimization: All CT scans at this facility use at least one of these dose optimization techniques: automated exposure control; mA and/or kV adjustment per patient size (includes targeted exams where dose is matched to clinical indication); or iterative reconstruction. Contrast material: OMNI 350; Contrast volume: 100 ml; Contrast route: INTRAVENOUS (IV); COMPARISON: CR (CHEST, ) 04/11/2025 7:59 PM RADIATION DOSE METRICS: Total DLP (mGy-cm): 458.83 FINDINGS: Pulmonary arteries: No acute or chronic pulmonary embolism. Aorta: Unremarkable. No aortic aneurysm. No aortic dissection. Lungs: There are findings of septal wall thickening in the upper and lower lung sounds, findings most concerning for developing interstitial edema early presentation. There is compressive atelectasis lower lobes. Pleural spaces: Unremarkable. No pneumothorax. No pleural effusion. Heart: Unremarkable. No cardiomegaly. No pericardial effusion. Coronary arteries: No significant coronary artery calcifications Lymph nodes: Right inferior pulmonary hilar 1.4 cm enlarged nodes present could be reactive inflammatory or congestive in nature. Bones/joints: Unremarkable. No acute fracture. Soft tissues: Unremarkable. CT/CT angio chest PE protcl [id number] IMPRESSION: 1. Findings most suspicious for developing interstitial edema with small septal wall thickening in the upper and lower lung parenchyma without significant pleural effusion 2. Compressive atelectasis lower lobes 3. No acute or chronic pulmonary embolism.
[2025-04-11 20:18] LABS: Troponin(5th) Baseline < 6 ng/L (0-10)
[2025-04-11 20:22] LABS: Alanine Aminotransferase 15 U/L (0-33); Albumin Level 4.1 g/dL (3.5-5.2); Alkaline Phosphatase 74 U/L (35-105); Aspartate Amino Transferase 21 U/L (0-32); Blood Urea Nitrogen 7 mg/dL (6-20); Calcium 8.9 mg/dL (8.5-10.5); Carbon Dioxide 26 mmol/L (22-29); Chloride 103 mmol/L (98-107); Creatinine Clr Calc Pharmacy 149.9107; Globulin 3.0 g/dL (1.3-4.6); Glucose 85 mg/dL (65-115); Lipase 27 U/L (13-60); Osmolality Calculated 283 mOsm/kg (285-295); Sodium 138 mmol/L (136-145); Total Protein 7.1 g/dL (6.6-8.7)
[2025-04-11] MEDS: iohexol 350 mg/mL 500 mL Btl (per mL) IV (20:30)
[2025-04-11 20:37] LABS: Anion Gap 13.1 (5-19); Potassium 4.1 mmol/L (3.5-5.1)
[2025-04-11 21:41] LABS: Respiratory Syncytial Virus Ce NEGATIVE (Negative); SARS-CoV-2 PCR NEGATIVE (Negative)
--- NOTE | 2025-04-11 21:49 | ECG_ITS ---
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 Measurements Intervals [place] Rate: 85 P: 53 MT: 160 QRS: 52 QRSD: 80 T: 53 QT: 338 QTc: 404 Interpretive Statements SINUS RHYTHM LOW QRS VOLTAGE IN PRECORDIAL LEADS [QRS DEFLECTION < 1.0 mV IN CHEST LEADS] Compared to ECG 04/11/2025 19:46:30 NO SIGNIFICANT CHANGE Electronically Signed On 04-11-2025 22:41:39 CDT by Morgan Hampton M.D. [email or web address]
[2025-04-11 22:31] LABS: Troponin 5 2HR < 6.0 ng/L (0-10); Troponin 5 2HR Delta 0 ABS# (0-10)
[2025-04-11 23:22] LABS: NT Pro B Type Natriuretic Pept < 36 pg/mL (0-125)
== END 2025-04-11 23:46 | disposition home or self-care (01) ==
PROVIDERS: Emergency Provider Emergency Medicine; PCP Nurse Practitioner Family
DX: R07.9 Chest pain, unspecified (principal); Z11.52 Encounter for screening for COVID-19; E78.5 Hyperlipidemia, unspecified
CPT/HCPCS: 36415; 71045; 71275; 80053; 83690; 83880; 84484; 85025; 85378; 87637; 93005; 96361; 96374; 99285; J1885; J7030